=== PATIENT | female | born 1990 | race Caucasian/White ===

== ENCOUNTER 2017-09-10 08:02 | Emergency (ER) | payer OTHER, MEDICAID ==
[2017-09-10] MEDS: LORAZEPAM 1 MG TAB PO (08:35)
[2017-09-10] MEDS: ONDANSETRON (ODT) 4 MG TAB ODT (08:35)
== END 2017-09-10 10:15 | disposition home or self-care (01) ==
LOC: E/R 10:15
DX: F11.23 Opioid dependence with withdrawal (principal); F17.210 Nicotine dependence, cigarettes, uncomplicated; R11.0 Nausea
CPT/HCPCS: 81025; 99284